=== PATIENT | male | born 1995 | race Caucasian/White ===

== ENCOUNTER 2019-09-19 21:55 | Emergency (ER) | payer SELFPAY ==
[~2019-09-19] VITALS: Ht 182.9 cm; Wt 111.1 kg
[2019-09-19 21:58] VITALS: BP 143/79; Ht 182.9 cm; Wt 111.1 kg
== END 2019-09-19 23:06 | disposition home or self-care (01) ==
LOC: ED 21:55
DX: R53.81 Other malaise (principal); R03.0 Elevated blood-pressure reading, without diagnosis of hypertension; Z02.79 Encounter for issue of other medical certificate